=== PATIENT | female | born 1985 | race Caucasian/White ===

== ENCOUNTER → 2016-11-25 | Day surgery (SDC) | payer MEDICARE, OTHER | END | disposition home or self-care (01) | LOC: FAS 08:55 | DX: L72.3 Sebaceous cyst (principal); G51.0 Bell's palsy; K86.1 Other chronic pancreatitis; J45.909 Unspecified asthma, uncomplicated; D64.9 Anemia, unspecified; F41.9 Anxiety disorder, unspecified; F32.9 Major depressive disorder, single episode, unspecified; G43.909 Migraine, unspecified, not intractable, without status migrainosus; F17.210 Nicotine dependence, cigarettes, uncomplicated; Z88.5 Allergy status to narcotic agent; Z91.013 Allergy to seafood; Z87.442 Personal history of urinary calculi; Z90.49 Acquired absence of other specified parts of digestive tract; Z90.710 Acquired absence of both cervix and uterus; Z98.51 Tubal ligation status; Z83.2 Family history of diseases of the blood and blood-forming organs and certain disorders involving the immune mechanism; Z81.8 Family history of other mental and behavioral disorders; Z82.62 Family history of osteoporosis; Z84.89 Family history of other specified conditions; Z81.1 Family history of alcohol abuse and dependence; Z82.5 Family history of asthma and other chronic lower respiratory diseases; Z83.3 Family history of diabetes mellitus; Z82.61 Family history of arthritis; Z82.3 Family history of stroke; Z79.899 Other long term (current) drug therapy | CPT/HCPCS: J2704; J3010 ==

== ENCOUNTER 2016-11-28 20:44 | Emergency (ER) | payer MEDICARE, OTHER | END 2016-11-28 22:25 | disposition CLEPR | LOC: FER 20:44 | DX: S61.412A Laceration without foreign body of left hand, initial encounter (principal); F17.200 Nicotine dependence, unspecified, uncomplicated; Z88.5 Allergy status to narcotic agent; Z91.013 Allergy to seafood; Z91.040 Latex allergy status; W26.0XXA Contact with knife, initial encounter; Y92.009 Unspecified place in unspecified non-institutional (private) residence as the place of occurrence of the external cause ==

== ENCOUNTER 2017-02-24 12:02 | Emergency (ER) | payer OTHER ==
[2017-02-24 13:37] LABS: ALBUMIN 4.5 g/dL (3.5-5.0); BILIRUBIN - TOTAL 0.4 mg/dL (0.1-1.0); CREATININE 0.7 mg/dL (0.5-1.0); GLOBULIN (CALCULATION) 3.1 g/dL (2.2-4.2); POTASSIUM 4.1 mmol/L (3.5-5.1); TOTAL PROTEIN 7.6 g/dL (6.4-8.3)
[2017-02-24 13:48] LABS: BASOPHIL 0.2 % (0-2); EOSINOPHIL 4.1 % (0-5); HCT 42.9 % (37.0-47.0); HGB 15.5 g/dl (12.5-16.0); LYMPHOCYTE 36.3 % (15-48); MCH 31.9 pg (25.0-31.0); MCHC 36.1 g/dL (32.0-36.0); MCV 88.3 fL (78.0-100.0); MONOCYTE 6.5 % (0-12); MPV 10.6 fL (6.0-9.5); NEUTROPHIL 52.9 % (41-80); PLT 114 K/uL (150-400); RBC 4.86 M/uL (4.20-5.40); RDW 13.6 % (11.5-14.0); WBC 12.4 K/uL (4.0-10.5)
== END 2017-02-24 15:08 | disposition home or self-care (01) ==
LOC: FER 12:02
PROVIDERS: Emergency Medicine
DX: K86.1 Other chronic pancreatitis (principal); F17.210 Nicotine dependence, cigarettes, uncomplicated; Z88.5 Allergy status to narcotic agent; Z91.040 Latex allergy status; Z90.49 Acquired absence of other specified parts of digestive tract; Z90.89 Acquired absence of other organs; Z98.890 Other specified postprocedural states
CPT/HCPCS: 36415; 80053; 82150; 83690; 85025; J1170; J2405; Q9967

== ENCOUNTER → 2020-12-31 | Day surgery (SDC) | payer OTHER ==
[~2020-12-31] MED LIST: AMOXICILLIN500 M2 PO; AMOXICILLIN500 MG PO; BENTYL10 MG PO; COLESTIPOL HCL1 GM PO; COMPAZINE10 MG PO; FLOMAX 0.4 MG0.4 MG PO; HYDROCODON-ACE1 EAC6 PO; IBUPROFEN800 MG PO; IMODIUM2 MG PO; LOMOTIL1 EACH PO; METRONIDAZOLE500 MG PO; MVI PO; NORCO 5-325 TA1 EACH PO; ONDANSETRON ODT4 MG SL; PANTOPRAZOLE SO40 MG PO; PERCOCET 5-3251 EACH PO; PHENERGAN25 M1 PO; VENTOLIN (2.5 MG/3 M PO; ZOFRAN4 M1 PO
== END | disposition home or self-care (01) ==
LOC: FAS 10:44
DX: K52.9 Noninfective gastroenteritis and colitis, unspecified (principal); K86.1 Other chronic pancreatitis; K29.70 Gastritis, unspecified, without bleeding; K31.89 Other diseases of stomach and duodenum; F41.9 Anxiety disorder, unspecified; J45.909 Unspecified asthma, uncomplicated; F17.210 Nicotine dependence, cigarettes, uncomplicated; Z88.5 Allergy status to narcotic agent; Z91.040 Latex allergy status; Z91.013 Allergy to seafood; Z79.2 Long term (current) use of antibiotics; Z79.899 Other long term (current) drug therapy
CPT/HCPCS: 88305; J2250; J7120

== ENCOUNTER → 2021-04-16 | Day surgery (SDC) | payer OTHER ==
[~2021-04-16] VITALS: Ht 160 cm; Wt 55.9 kg
[2021-04-16 07:52] LABS: BASOPHIL 0.5 % (0-2); EOSINOPHIL 3.6 % (0-5); HCT 36.8 % (37.0-47.0); HGB 12.4 g/dl (12.5-16.0); LYMPHOCYTE 35.3 % (15-48); MCHC 33.7 g/dL (32.0-36.0); MCV 95.1 fL (78.0-100.0); MONOCYTE 5.2 % (0-12); MPV 9.6 fL (6.0-9.5); NEUTROPHIL 55.1 % (41-80); NRBC 0; PLT 211 K/uL (150-400); RBC 3.87 M/uL (4.20-5.40); RDW 13.4 % (11.5-14.0); WBC 7.6 K/uL (4.0-10.5)
== END | disposition home or self-care (01) ==
LOC: FAS 02-19 12:15
PROVIDERS: Oral & Maxillofacial Surgery
DX: K02.9 Dental caries, unspecified (principal); K04.7 Periapical abscess without sinus; Z88.5 Allergy status to narcotic agent; M54.9 Dorsalgia, unspecified; G89.29 Other chronic pain; K86.1 Other chronic pancreatitis
CPT/HCPCS: D7140; D7210; 36415; 85025; J1100; J1170; J2250; J2405; J2704; J2710; J3010; J7120

== ENCOUNTER → 2021-06-11 | Day surgery (SDC) | payer OTHER ==
[~2021-06-11] VITALS: Ht 160 cm; Wt 56.8 kg
[2021-06-11 11:40] LABS: BASOPHIL 0.5 % (0-2); EOSINOPHIL 3.3 % (0-5); HCT 39.3 % (37.0-47.0); HGB 13.3 g/dl (12.5-16.0); LYMPHOCYTE 34.3 % (15-48); MCHC 33.8 g/dL (32.0-36.0); MCV 94.5 fL (78.0-100.0); MONOCYTE 5.9 % (0-12); MPV 9.4 fL (6.0-9.5); NEUTROPHIL 55.7 % (41-80); NRBC 0; PLT 252 K/uL (150-400); RBC 4.16 M/uL (4.20-5.40); RDW 13.2 % (11.5-14.0); WBC 7.9 K/uL (4.0-10.5)
== END | disposition home or self-care (01) ==
LOC: FAS 09:00
PROVIDERS: Oral & Maxillofacial Surgery
DX: M27.8 Other specified diseases of jaws (principal); F43.10 Post-traumatic stress disorder, unspecified; F31.9 Bipolar disorder, unspecified; K86.1 Other chronic pancreatitis; M54.9 Dorsalgia, unspecified; G89.29 Other chronic pain; F17.210 Nicotine dependence, cigarettes, uncomplicated
CPT/HCPCS: 36415; 85025; J1100; J1170; J2250; J7120

== ENCOUNTER 2022-02-19 15:51 | Emergency (ER) | payer OTHER ==
[2022-02-19 20:22] LABS: BASOPHIL 0.3 % (0-2); EOSINOPHIL 2.1 % (0-5); HCT 36.6 % (37.0-47.0); HGB 12.3 g/dl (12.5-16.0); LYMPHOCYTE 36.8 % (15-48); MCHC 33.6 g/dL (32.0-36.0); MCV 95.3 fL (78.0-100.0); MONOCYTE 5.2 % (0-12); MPV 10.1 fL (6.0-9.5); NEUTROPHIL 55.4 % (41-80); NRBC 0; PLT 214 K/uL (150-400); RBC 3.84 M/uL (4.20-5.40); RDW 13.2 % (11.5-14.0); WBC 10.2 K/uL (4.0-10.5)
[2022-02-19 20:37] LABS: ALBUMIN 3.2 g/dL (3.4-5.0); BILIRUBIN - TOTAL 0.3 mg/dL (0.2-1.0); BUN/CREAT RATIO (CALC) 7.8 RATIO; CREATININE 1.02 mg/dL (0.51-0.95); GLOBULIN (CALCULATION) 2.8 g/dL; POTASSIUM 3.9 mmol/L (3.5-5.1)
== END 2022-02-19 21:15 | disposition home or self-care (01) ==
LOC: FER 15:51
PROVIDERS: Emergency Medicine
DX: R10.13 Epigastric pain (principal); F17.200 Nicotine dependence, unspecified, uncomplicated; Z88.5 Allergy status to narcotic agent; Z91.040 Latex allergy status; Z28.310 Unvaccinated for COVID-19
CPT/HCPCS: 36415; 80053; 83690; 85025; 93005; J1170; J2405; J7030